=== PATIENT | male | born 1955 | race Caucasian/White ===

== ENCOUNTER → 2016-07-05 | Outpatient (CLI) | payer BC ==
[2014-06-09 11:47] VITALS: BP 138/82
[~2016-07-05] MED LIST: CARDI-OMEGA1000 MG PO; FOLPLEX 2.2 0.51 TAB PO; LANTUS100 U/ML SC; LISINOPRIL40 MG PO; METFORMIN500 MG PO; MEVACOR 20M20 MG/TAB PO; MULTIPLE VITAMI1 CAP PO
== END ==
LOC: LAB 06:50
DX: I10 Essential (primary) hypertension (principal); E11.9 Type 2 diabetes mellitus without complications; R80.9 Proteinuria, unspecified; Z12.5 Encounter for screening for malignant neoplasm of prostate

== ENCOUNTER → 2017-01-08 | Outpatient (CLI) | payer BC ==
[2014-06-09 11:47] VITALS: BP 138/82
== END ==
LOC: LAB 06:59
DX: E11.65 Type 2 diabetes mellitus with hyperglycemia (principal)

== ENCOUNTER → 2017-03-07 | Outpatient (CLI) | payer BC ==
[2014-06-09 11:47] VITALS: BP 138/82
== END ==
LOC: LAB 07:35
DX: E11.9 Type 2 diabetes mellitus without complications (principal); R80.9 Proteinuria, unspecified; J01.90 Acute sinusitis, unspecified

== ENCOUNTER → 2017-08-14 | Outpatient (CLI) | payer BC ==
[2014-06-09 11:47] VITALS: BP 138/82
[2017-08-14 07:02] LABS: ALBUMIN 3.7 g/dL (3.5-5.0); BUN/CREATININE RATIO 21.5 (6.0-26.0); CALCIUM 8.9 mg/dL (8.4-10.2); POTASSIUM 3.5 mmol/L (3.6-5.0); TOTAL BILIRUBIN 0.6 mg/dL (0.2-1.3); TOTAL PROTEIN 6.2 g/dL (6.3-8.2)
== END ==
LOC: LAB 06:21
PROVIDERS: Family Medicine
DX: Z12.5 Encounter for screening for malignant neoplasm of prostate (principal); R80.9 Proteinuria, unspecified; E11.9 Type 2 diabetes mellitus without complications; I10 Essential (primary) hypertension

== ENCOUNTER → 2017-11-21 | Outpatient (CLI) | payer BC ==
[2014-06-09 11:47] VITALS: BP 138/82
== END ==
LOC: LAB 09:07
DX: E11.9 Type 2 diabetes mellitus without complications (principal); I10 Essential (primary) hypertension